=== PATIENT | female | born 1945 | race Caucasian/White ===

== ENCOUNTER → 2016-11-23 | Outpatient (CLI) | payer MEDICARE ==
[2014-01-21 15:13] VITALS: BP 119/61
--- NOTE | 2016-11-23 17:16 | KCIC ---
Examination: Two views of the calcaneus right. HISTORY History of right heel pain for 6 months COMPARISON None available. Findings : The alignment of the subtalar joint grossly appears unremarkable. Small inferior calcaneal enthesophyte identified. There is some soft tissue prominence identified inferior to the calcaneus. IMPRESSION 1. No acute osseous findings. 2. Small inferior calcaneal enthesophyte identified. Some prominence of soft tissue identified inferior to calcaneus. If there is clinical suspicion for plantar fasciitis, consider MRI for further evaluation. Electronically signed by: Jack Maldonado (Nov 23, 2016 17:15:45)
== END | disposition home or self-care (01) ==
LOC: KCIC 14:09
PROVIDERS: ATTEND Family Medicine
DX: M72.2 Plantar fascial fibromatosis (principal)
CPT/HCPCS: 73650

== ENCOUNTER → 2019-01-23 | Outpatient (CLI) | payer MEDICARE ==
[2014-01-21 15:13] VITALS: BP 119/61
--- NOTE | 2019-01-23 08:50 | KCIC ---
COMPLETE ABDOMINAL ULTRASOUND Clinical History: Bilateral flank pain x6 months Comparison: None. Technique: Sonographic examination of the abdomen was performed and multiple grayscale and color Doppler static images were obtained. Findings: Most of the liver is visualized and is homogeneous. The liver measures 15 cm. Ultrasound is not sensitive for detecting solid liver lesions. Portal flow is hepatopetal. The common bile duct is normal in caliber, measuring 3 mm in diameter. The gallbladder wall is normal. Per report, sonographic Ortiz sign is negative. There is no cholelithiasis or pericholecystic fluid. The visualized pancreas is homogeneous. The right kidney is normal in echotexture and measures 10 cm. The left kidney is normal in echotexture and measures 9.8 cm. Corticomedullary differentiation is preserved. There is no hydronephrosis. The spleen is not enlarged, measuring 7.7 cm. Visualized portions of the abdominal aorta and IVC are normal. IMPRESSION: There is no acute abdominal abnormality identified sonographically. Electronically signed by: Carlos Fleming MD (01/23/2019 8:48 AM) [id number]
== END | disposition home or self-care (01) ==
LOC: KCIC US 07:44
PROVIDERS: ATTEND Family Medicine
DX: R10.9 Unspecified abdominal pain (principal)
CPT/HCPCS: 76700

== ENCOUNTER → 2019-04-16 | Outpatient (CLI) | payer MEDICARE ==
[2014-01-21 15:13] VITALS: BP 119/61
--- NOTE | 2019-04-16 16:43 | KCIC ---
Exam: Thoracic spine Date: 04/16/2019 12:00 AM CLINICAL HISTORY: Neuropathy, new onset pain radiating into right scapula and shoulder COMPARISON: None available. FINDINGS: AP and lateral/swimmers views of the thoracic spine submitted. Moderate superimposed artifact at the cervicothoracic junction on the lateral view based on technique. Trace disc height loss at several mid thoracic levels. Negative degenerative/proliferative changes. Negative compression fracture. Negative malalignment. Negative focal paraspinal line deviation/hematoma. IMPRESSION: 1. No evidence for acute fracture or subluxation. Electronically signed by: Vin Grimm MD (04/16/2019 4:39 PM) [facility]
== END | disposition home or self-care (01) ==
LOC: KCIC 11:31
PROVIDERS: ATTEND Family Medicine
DX: G62.9 Polyneuropathy, unspecified (principal)
CPT/HCPCS: 72072